=== PATIENT | male | born 1975 | race Caucasian/White ===

== ENCOUNTER 2018-10-15 10:15 | Emergency (ER) | payer OTHER ==
[~2018-10-15] VITALS: Ht 177.8 cm; Wt 100.0 kg
[~2018-10-15 10:15] MED LIST: BACLOFEN10 MG PO; BUPRENORPHIN-N1 EACH SL; CARAFATE1 G PO; CLARITIN 10 MG10 MG PO; CLONAZEPAM2 MG/TAB PO; IBUPROFEN600 MG PO; LATUDA80 MG PO; LYRICA50 MG PO; NEURONTIN600 MG PO; SEROQUEL200 MG PO; SEROQUEL400 MG PO; TOPROL XL25 MG
[2018-10-15 10:27] VITALS: Ht 177.8 cm; Wt 100.0 kg
[2018-10-15 11:01] LABS: BASOPHILS 0.2 % (0-2); EOSINOPHILS 4.3 % (0-7); HEMATOCRIT 32.8 % (42.0-54.0); HEMOGLOBIN 10.4 g/dL (13.5-17.5); IMMATURE GRANULOCYTES 0.2 % (0-5); LYMPHOCYTES 22.1 % (15-50); MCH 27.1 pg (26.0-34.0); MCHC 31.7 g/dL (31.0-37.0); MCV 85.4 fL (80.0-100.0); MEAN PLATELET VOLUME 9.7 fL (7.4-10.4); MONOCYTES 7.8 % (2-11); NEUTROPHILS 65.4 % (40-80); PLATELET COUNT 276 10x3/uL (130-400); RBC 3.84 10x6/uL (4.20-6.10)
[2018-10-15 11:15] LABS: SALICYLATES 3.2 mg/dL (2.8-20.0)
[2018-10-15 11:18] LABS: LITHIUM 0.05 mmol/L (0.60-1.20)
[2018-10-15 11:19] LABS: ALBUMIN 3.2 g/dL (3.4-5.0); ALKALINE PHOSPHATASE 80 U/L (46-116); ALT (SGPT) 36 U/L (10-68); BILIRUBIN - TOTAL 0.18 mg/dL (0.2-1.3); CALC OSMOLALITY 277 mosm/kg (275-300); CALCIUM 8.4 mg/dL (8.5-10.1); CARBON DIOXIDE 28.1 mmol/L (21.0-32.0); CHLORIDE - SERUM 106 mmol/L (98-107); CREATININE - SERUM 0.9 mg/dL (0.6-1.3); GLUCOSE 102 mg/dL (74-106); MAGNESIUM - SERUM 1.8 mg/dL (1.8-2.4); POTASSIUM - SERUM 3.8 mmol/L (3.5-5.1); PROTEIN - SERUM 7.3 g/dL (6.4-8.2); SODIUM 140 mmol/L (136-145); UREA NITROGEN 10 mg/dL (7-18); eGFR NON AFRICAN AMERICAN > 90 mL/min (90-120)
[2018-10-15 11:58] LABS: APPEARANCE CLEAR (CLEAR); BILIRUBIN NEGATIVE (NEGATIVE); COLOR STRAW (YELLOW); GLUCOSE NEGATIVE (NEGATIVE); KETONE NEGATIVE (NEGATIVE); NITRITE NEGATIVE (NEGATIVE); PROTEIN NEGATIVE (NEGATIVE); UROBILINOGEN NORMAL (NORMAL)
[2018-10-15 12:21] LABS: UDS - AMPHET NEGATIVE QUAL (NEGATIVE); UDS - BARB NEGATIVE QUAL (NEGATIVE); UDS - BENZO NEGATIVE QUAL (NEGATIVE); UDS - COCAINE NEGATIVE QUAL (NEGATIVE); UDS - OPIATE NEGATIVE QUAL (NEGATIVE); UDS - PCP NEGATIVE QUAL (NEGATIVE); UDS - THC POSITIVE QUAL (NEGATIVE)
[2018-10-15 20:26] VITALS: BP 115/72
== END 2018-10-15 20:31 ==
LOC: D.ER 10:15
PROVIDERS: Emergency Medicine
DX: F31.9 Bipolar disorder, unspecified (principal)

== ENCOUNTER 2018-11-02 16:59 | Emergency (ER) | payer OTHER ==
[~2018-11-02] VITALS: Ht 177.8 cm; Wt 95.5 kg
[2018-11-02 17:15] VITALS: Ht 177.8 cm; Wt 95.5 kg
[2018-11-02 17:57] LABS: BASOPHILS 0 % (0-2); EOSINOPHILS 3.4 % (0-7); HEMATOCRIT 30.9 % (42.0-54.0); HEMOGLOBIN 9.8 g/dL (13.5-17.5); IMMATURE GRANULOCYTES 0.8 % (0-5); LYMPHOCYTES 8.8 % (15-50); MCH 26.3 pg (26.0-34.0); MCHC 31.7 g/dL (31.0-37.0); MCV 83.1 fL (80.0-100.0); MEAN PLATELET VOLUME 9.8 fL (7.4-10.4); MONOCYTES 0 % (2-11); RBC 3.72 10x6/uL (4.20-6.10); RDW 17.7 % (11.5-14.5); WBC 2.6 10x3/uL (4.8-10.8)
[2018-11-02 17:59] LABS: PLATELET COUNT 199 10x3/uL (130-400)
[2018-11-02 18:10] LABS: UDS - AMPHET POSITIVE QUAL (NEGATIVE); UDS - BARB NEGATIVE QUAL (NEGATIVE); UDS - BENZO NEGATIVE QUAL (NEGATIVE); UDS - COCAINE NEGATIVE QUAL (NEGATIVE); UDS - OPIATE NEGATIVE QUAL (NEGATIVE); UDS - PCP NEGATIVE QUAL (NEGATIVE); UDS - THC POSITIVE QUAL (NEGATIVE)
[2018-11-02 18:12] LABS: APPEARANCE CLEAR (CLEAR); BILIRUBIN NEGATIVE (NEGATIVE); COLOR STRAW (YELLOW); GLUCOSE NEGATIVE (NEGATIVE); KETONE NEGATIVE (NEGATIVE); NITRITE NEGATIVE (NEGATIVE); PROTEIN NEGATIVE (NEGATIVE); SPECIFIC GRAVITY 1.005 (1.005-1.020); UROBILINOGEN NORMAL (NORMAL)
[2018-11-02 18:14] LABS: BACTERIA FEW /hpf (NONE SEEN); RED CELLS - URINE RARE /hpf (0-5); WHITE CELLS - URINE OCC /hpf (0-5)
[2018-11-02 18:16] LABS: ALBUMIN 3.3 g/dL (3.4-5.0); ANION GAP 12.3 mmol/L (8-16); BILIRUBIN - TOTAL 0.32 mg/dL (0.2-1.3); CALCIUM 8.4 mg/dL (8.5-10.1); CARBON DIOXIDE 25.6 mmol/L (21.0-32.0); CREATININE - SERUM 1.2 mg/dL (0.6-1.3); MAGNESIUM - SERUM 1.4 mg/dL (1.8-2.4); POTASSIUM - SERUM 3.9 mmol/L (3.5-5.1)
[2018-11-02] MEDS ORDERED: LEVAQUIN750 MG PO (18:54)
[2018-11-02] MEDS ORDERED: IBUPROFEN800 MG PO (18:57)
[2018-11-02 23:29] VITALS: BP 135/89
== END 2018-11-02 23:30 | disposition home or self-care (01) ==
LOC: D.ER 16:59
PROVIDERS: Emergency Medicine
DX: F10.10 Alcohol abuse, uncomplicated (principal); D64.9 Anemia, unspecified; F15.10 Other stimulant abuse, uncomplicated; R50.9 Fever, unspecified; E83.42 Hypomagnesemia

== ENCOUNTER 2018-11-26 15:19 | Inpatient (IN) | payer OTHER | END 2018-12-01 14:50 | disposition home or self-care (01) | DRG 603 | LOC: D.ER 15:19 → D.M2 20:51 | PROVIDERS: ADMIT Family Medicine | DX: L03.113 Cellulitis of right upper limb (principal); F31.12 Bipolar disorder, current episode manic without psychotic features, moderate; F15.10 Other stimulant abuse, uncomplicated; F12.10 Cannabis abuse, uncomplicated; F11.10 Opioid abuse, uncomplicated ==

== ENCOUNTER 2018-12-04 12:03 | Emergency (ER) | payer OTHER ==
[~2018-12-04 12:03] MED LIST changes: +BUPRENORPHINE/NALOX; +IBUPROFEN800 MG PO; +LEVAQUIN750 MG PO; +LITHIUM CARBON300 MG PO; +NEURONTIN800 MG PO
[2018-12-04 12:08] VITALS: BP 143/77; BMI 28.7
[2018-12-04 12:38] LABS: BASOPHILS 0.2 % (0-2); EOSINOPHILS 7.3 % (0-7); HEMATOCRIT 34.1 % (42.0-54.0); IMMATURE GRANULOCYTES 0.7 % (0-5); LYMPHOCYTES 26.6 % (15-50); MCH 24.8 pg (26.0-34.0); MCHC 32.3 g/dL (31.0-37.0); MEAN PLATELET VOLUME 9.4 fL (7.4-10.4); MONOCYTES 8.8 % (2-11); NEUTROPHILS 56.4 % (40-80); PLATELET COUNT 321 10x3/uL (130-400); RBC 4.43 10x6/uL (4.20-6.10); RDW 17.8 % (11.5-14.5); WBC 8.5 10x3/uL (4.8-10.8)
[2018-12-04 12:50] LABS: ALBUMIN 3.2 g/dL (3.4-5.0); ALKALINE PHOSPHATASE 106 U/L (46-116); ALT (SGPT) 40 U/L (10-68); BILIRUBIN - TOTAL 0.18 mg/dL (0.2-1.3); CALC OSMOLALITY 278 mosm/kg (275-300); CALCIUM 8.6 mg/dL (8.5-10.1); CARBON DIOXIDE 29.7 mmol/L (21.0-32.0); CHLORIDE - SERUM 103 mmol/L (98-107); CREATININE - SERUM 0.8 mg/dL (0.6-1.3); GLUCOSE 81 mg/dL (74-106); POTASSIUM - SERUM 3.2 mmol/L (3.5-5.1); PROTEIN - SERUM 7.5 g/dL (6.4-8.2); SODIUM 141 mmol/L (136-145); UREA NITROGEN 10 mg/dL (7-18); eGFR NON AFRICAN AMERICAN > 90 mL/min (90-120)
[2018-12-04 12:59] LABS: APPEARANCE CLEAR (CLEAR); BILIRUBIN NEGATIVE (NEGATIVE); COLOR STRAW (YELLOW); GLUCOSE NEGATIVE (NEGATIVE); KETONE NEGATIVE (NEGATIVE); NITRITE NEGATIVE (NEGATIVE); PROTEIN NEGATIVE (NEGATIVE); SPECIFIC GRAVITY 1.005 (1.005-1.020); UROBILINOGEN NORMAL (NORMAL)
[2018-12-04 13:08] LABS: UDS - AMPHET NEGATIVE QUAL (NEGATIVE); UDS - BARB NEGATIVE QUAL (NEGATIVE); UDS - BENZO NEGATIVE QUAL (NEGATIVE); UDS - COCAINE NEGATIVE QUAL (NEGATIVE); UDS - OPIATE NEGATIVE QUAL (NEGATIVE); UDS - PCP NEGATIVE QUAL (NEGATIVE); UDS - THC NEGATIVE QUAL (NEGATIVE)
--- NOTE | 2018-12-04 13:40 | NUR ---
DR. THOMAS NOTIFIED AND REVIEWED PATIENTS BEHAVIOR AND ASSESSMENT RESULTS. PT IS LOW RISK PER DR. TSANG. DR. TSANG STATED TO GIVE RESOURCES TO PT AT TIME OF DISCHARGE. NO FURTHER ORDERS AT THIS TIME. PT STATED HE WANTED HIS MEDICATIONS."
== END 2018-12-04 18:10 ==
LOC: D.ER 12:03
PROVIDERS: Emergency Medicine
DX: R45.851 Suicidal ideations (principal); F32.9 Major depressive disorder, single episode, unspecified

== ENCOUNTER 2018-12-23 07:31 | Emergency (ER) | payer OTHER ==
[~2018-12-23] VITALS: Ht 177.8 cm; Wt 86.4 kg
[2018-12-23 07:39] VITALS: Ht 177.8 cm; Wt 86.4 kg
[2018-12-23] MEDS ORDERED: EFFEXOR50 MG PO (07:40)
[2018-12-23] MEDS ORDERED: SUBOXONE 2 MG-01 TAB SL (07:41)
--- NOTE | 2018-12-23 07:49 | NUR ---
NURSE PRESENT WITH PT UPON ARRIVAL FOR SUICIDE ASSESSMENT. DR. TSANG NOTIFIED AND 1:1 SITTER OBSERVATION ORDERED. SITTER AT BEDSIDE. NOTIFIED CHARGE NURSE AND ATTENDING IN REGARDS TO ASSESSMENT FINDINGS. RESOURCES GIVEN TO PT AND SAFETY PLAN INITIATED.
[2018-12-23 08:47] LABS: UDS - AMPHET POSITIVE QUAL (NEGATIVE); UDS - BARB NEGATIVE QUAL (NEGATIVE); UDS - BENZO NEGATIVE QUAL (NEGATIVE); UDS - COCAINE NEGATIVE QUAL (NEGATIVE); UDS - OPIATE NEGATIVE QUAL (NEGATIVE); UDS - PCP NEGATIVE QUAL (NEGATIVE); UDS - THC POSITIVE QUAL (NEGATIVE)
[2018-12-23 08:55] LABS: APPEARANCE HAZY (CLEAR); BILIRUBIN NEGATIVE (NEGATIVE); COLOR YELLOW (YELLOW); GLUCOSE NEGATIVE (NEGATIVE); KETONE SMALL mg/dL (NEGATIVE); NITRITE NEGATIVE (NEGATIVE); PROTEIN NEGATIVE (NEGATIVE); SPECIFIC GRAVITY 1.015 (1.005-1.020); UROBILINOGEN NORMAL (NORMAL)
[2018-12-23 08:55] LABS: BASOPHILS 0.1 % (0-2); EOSINOPHILS 0.9 % (0-7); HEMATOCRIT 33.3 % (42.0-54.0); HEMOGLOBIN 10.8 g/dL (13.5-17.5); IMMATURE GRANULOCYTES 0.1 % (0-5); LYMPHOCYTES 11.7 % (15-50); MCHC 32.4 g/dL (31.0-37.0); MCV 77.1 fL (80.0-100.0); MEAN PLATELET VOLUME 9.3 fL (7.4-10.4); NEUTROPHILS 81.2 % (40-80); RBC 4.32 10x6/uL (4.20-6.10); RDW 19.3 % (11.5-14.5); WBC 6.8 10x3/uL (4.8-10.8)
[2018-12-23 09:04] LABS: PLATELET COUNT 239 10x3/uL (130-400)
[2018-12-23 09:14] LABS: ALBUMIN 3.5 g/dL (3.4-5.0); ALKALINE PHOSPHATASE 108 U/L (46-116); ALT (SGPT) 55 U/L (10-68); BILIRUBIN - TOTAL 0.94 mg/dL (0.2-1.3); CALC OSMOLALITY 277 mosm/kg (275-300); CALCIUM 8.7 mg/dL (8.5-10.1); CARBON DIOXIDE 27.2 mmol/L (21.0-32.0); CHLORIDE - SERUM 104 mmol/L (98-107); CREATININE - SERUM 0.6 mg/dL (0.6-1.3); GLUCOSE 109 mg/dL (74-106); POTASSIUM - SERUM 3.3 mmol/L (3.5-5.1); PROTEIN - SERUM 7.5 g/dL (6.4-8.2); SODIUM 140 mmol/L (136-145); UREA NITROGEN 6 mg/dL (7-18); eGFR NON AFRICAN AMERICAN > 90 mL/min (90-120)
[2018-12-23 09:34] LABS: CREATINE KINASE 465 UL (21-232); MAGNESIUM - SERUM 2.1 mg/dL (1.8-2.4); THYROID STIMULATING HORMONE 0.23 uIU/mL (0.36-3.74)
[2018-12-23 09:36] LABS: CKMB 3.5 U/L (0.0-3.6)
[2018-12-23 15:46] VITALS: BP 128/86
== END 2018-12-23 17:48 ==
LOC: D.ER 07:31
PROVIDERS: Family Medicine
DX: E87.6 Hypokalemia (principal); E86.0 Dehydration; F19.10 Other psychoactive substance abuse, uncomplicated; R45.851 Suicidal ideations

== ENCOUNTER 2019-01-17 18:07 | Emergency (ER) | payer OTHER ==
[~2019-01-17] VITALS: Ht 177.8 cm; Wt 84.1 kg
[~2019-01-17 18:07] MED LIST changes: +EFFEXOR50 MG PO; +SUBOXONE 2 MG-01 TAB SL
[2019-01-17 18:20] VITALS: Ht 177.8 cm; Wt 84.1 kg
[2019-01-17 18:38] LABS: BASOPHILS 0.1 % (0-2); HEMATOCRIT 30.7 % (42.0-54.0); HEMOGLOBIN 9.8 g/dL (13.5-17.5); IMMATURE GRANULOCYTES 0.1 % (0-5); LYMPHOCYTES 16.6 % (15-50); MCH 25.7 pg (26.0-34.0); MCHC 31.9 g/dL (31.0-37.0); MCV 80.4 fL (80.0-100.0); MONOCYTES 6.9 % (2-11); NEUTROPHILS 73.3 % (40-80); PLATELET COUNT 304 10x3/uL (130-400); RBC 3.82 10x6/uL (4.20-6.10); RDW 18.3 % (11.5-14.5); WBC 8.5 10x3/uL (4.8-10.8)
[2019-01-17 18:46] LABS: SALICYLATES 0.3 mg/dL (2.8-20.0)
[2019-01-17 18:48] LABS: LITHIUM < 0.60 mmol/L (0.60-1.20)
[2019-01-17 18:51] LABS: ALBUMIN 2.8 g/dL (3.4-5.0); ALKALINE PHOSPHATASE 87 U/L (46-116); ALT (SGPT) 27 U/L (10-68); CALC OSMOLALITY 277 mosm/kg (275-300); CALCIUM 8.2 mg/dL (8.5-10.1); CARBON DIOXIDE 29.6 mmol/L (21.0-32.0); CHLORIDE - SERUM 105 mmol/L (98-107); CREATININE - SERUM 1.1 mg/dL (0.6-1.3); GLUCOSE 116 mg/dL (74-106); MAGNESIUM - SERUM 1.8 mg/dL (1.8-2.4); PROTEIN - SERUM 6.7 g/dL (6.4-8.2); SODIUM 140 mmol/L (136-145); UREA NITROGEN 7 mg/dL (7-18); eGFR NON AFRICAN AMERICAN 78 mL/min (90-120)
[2019-01-17 18:54] LABS: POTASSIUM - SERUM 2.6 mmol/L (3.5-5.1)
[2019-01-17 19:44] LABS: APPEARANCE CLEAR (CLEAR); BILIRUBIN NEGATIVE (NEGATIVE); COLOR YELLOW (YELLOW); GLUCOSE NEGATIVE (NEGATIVE); KETONE NEGATIVE (NEGATIVE); NITRITE NEGATIVE (NEGATIVE); PROTEIN TRACE mg/dL (NEGATIVE); SPECIFIC GRAVITY 1.005 (1.005-1.020)
[2019-01-17 19:54] LABS: UDS - AMPHET POSITIVE QUAL (NEGATIVE); UDS - BARB NEGATIVE QUAL (NEGATIVE); UDS - BENZO POSITIVE QUAL (NEGATIVE); UDS - COCAINE NEGATIVE QUAL (NEGATIVE); UDS - OPIATE NEGATIVE QUAL (NEGATIVE); UDS - PCP NEGATIVE QUAL (NEGATIVE); UDS - THC POSITIVE QUAL (NEGATIVE)
--- NOTE | 2019-01-17 20:43 | NUR ---
PATIENT REFUSED SUICIDE ASSESSMENT. STATES "I DON'T FEEL LIKE ANSWERING YOUR QUESTIONS". ENCOURAGE TO ANSWER QUESTIONS BUT CONTINUED TO REFUSE. INFORMED CHARGE NURSE OF PATIENT REFUSAL OF SUICIDE ASSESSMENT. PATIENT IN SAFE ROOM WITH VIDEO OBSERVATION.
--- NOTE | 2019-01-18 08:27 | NUR ---
DR. TSANG NOTIFIED. SITTER ORDERED. SITTER AT BEDSIDE. NOTIFIED CHARGE NURSE AND ATTENDING IN REGARDS TO ASSESSMENT FINDINGS. RESOURCES GIVEN TO PT AND SAFETY PLAN INITIATED.
[2019-01-18 16:19] VITALS: BP 151/91
== END 2019-01-18 16:19 | disposition home or self-care (01) ==
LOC: D.ER 18:07
PROVIDERS: Family Medicine
DX: F32.9 Major depressive disorder, single episode, unspecified (principal); F19.11 Other psychoactive substance abuse, in remission; E87.6 Hypokalemia; D64.9 Anemia, unspecified; Z91.19 Patient's noncompliance with other medical treatment and regimen

== ENCOUNTER 2019-02-03 10:03 | Emergency (ER) | payer OTHER ==
[~2019-02-03] VITALS: Ht 177.8 cm; Wt 84.1 kg
[2019-02-03 10:23] VITALS: BP 130/74; Ht 177.8 cm; Wt 84.1 kg
[2019-02-03 10:51] LABS: APPEARANCE CLEAR (CLEAR); BILIRUBIN NEGATIVE (NEGATIVE); COLOR YELLOW (YELLOW); GLUCOSE NEGATIVE (NEGATIVE); KETONE SMALL mg/dL (NEGATIVE); NITRITE NEGATIVE (NEGATIVE); PROTEIN NEGATIVE (NEGATIVE); SPECIFIC GRAVITY 1.015 (1.005-1.020); UROBILINOGEN NORMAL (NORMAL)
[2019-02-03 10:52] LABS: HEMATOCRIT 33.2 % (42.0-54.0); HEMOGLOBIN 10.6 g/dL (13.5-17.5); LYMPHOCYTES 22.5 % (15-50); MCH 26.2 pg (26.0-34.0); MCHC 31.9 g/dL (31.0-37.0); MEAN PLATELET VOLUME 8.9 fL (7.4-10.4); NEUTROPHILS 67.8 % (40-80); PLATELET COUNT 329 10x3/uL (130-400); RBC 4.05 10x6/uL (4.20-6.10); RDW 17.3 % (11.5-14.5); WBC 5.5 10x3/uL (4.8-10.8)
[2019-02-03 11:21] LABS: ALBUMIN 2.8 g/dL (3.4-5.0); ALKALINE PHOSPHATASE 86 U/L (46-116); ALT (SGPT) 22 U/L (10-68); BILIRUBIN - TOTAL 0.33 mg/dL (0.2-1.3); CALC OSMOLALITY 266 mosm/kg (275-300); CALCIUM 8.1 mg/dL (8.5-10.1); CARBON DIOXIDE 26.9 mmol/L (21.0-32.0); CHLORIDE - SERUM 102 mmol/L (98-107); CREATININE - SERUM 0.7 mg/dL (0.6-1.3); GLUCOSE 81 mg/dL (74-106); MAGNESIUM - SERUM 1.8 mg/dL (1.8-2.4); POTASSIUM - SERUM 3.6 mmol/L (3.5-5.1); PROTEIN - SERUM 7.6 g/dL (6.4-8.2); SODIUM 135 mmol/L (136-145); UDS - AMPHET POSITIVE QUAL (NEGATIVE); UDS - BARB NEGATIVE QUAL (NEGATIVE); UDS - BENZO POSITIVE QUAL (NEGATIVE); UDS - COCAINE NEGATIVE QUAL (NEGATIVE); UDS - OPIATE NEGATIVE QUAL (NEGATIVE); UDS - PCP NEGATIVE QUAL (NEGATIVE); UDS - THC POSITIVE QUAL (NEGATIVE); UREA NITROGEN 6 mg/dL (7-18); eGFR NON AFRICAN AMERICAN > 90 mL/min (90-120)
--- NOTE | 2019-02-03 11:39 | NUR ---
PT IS VERY UNCOOPERATIVE WITH ASSESSMENT AND JUST REPEATS THAT HE WANTS TO OVERDOSE BY PILLS. WHEN ASKED IF HE HAD ACCESS TO PILLS HE SAID NO BUT CALLED THIS NURSE STUPID AND STATED HE COULD GET THEM. PT KEPT FALLING ASLEEP DURING ASSESSMENT AND HE WAS WOKEN UP, HE DEMANDED FOOD. PT REFUSED TO FINISH ASSESSMENT. DR. TSANG NOTIFIED AND SITTER ORDERED WITH SUICIDE WATCH. PT ASSESSED HIGH RISK. RESOURCES GIVEN AND SAFETY PLAN ATTEPTED BUT PT REFUSED. SITTER AT BEDSIDE. PT PLACED IN PAPER SCRUBS AND BELONGINGS AT NURSES STATION.
[2019-02-03] MEDS ORDERED: MINOCYCLINE HCL75 M1 PO (11:58)
== END 2019-02-03 12:43 | disposition home or self-care (01) ==
LOC: D.ER 10:03
PROVIDERS: Emergency Medicine
DX: S80.862A Insect bite (nonvenomous), left lower leg, initial encounter (principal); S80.861A Insect bite (nonvenomous), right lower leg, initial encounter; W57.XXXA Bitten or stung by nonvenomous insect and other nonvenomous arthropods, initial encounter; Y93.89 Activity, other specified; Y92.89 Other specified places as the place of occurrence of the external cause; R45.851 Suicidal ideations; K62.89 Other specified diseases of anus and rectum

== ENCOUNTER 2019-03-29 17:32 | Emergency (ER) | payer OTHER ==
[2019-02-03 10:23] VITALS: BMI 26.6
[~2019-03-29 17:32] MED LIST changes: +MINOCYCLINE HCL75 M1 PO
== END 2019-03-29 17:53 | disposition left against medical advice (07) ==
LOC: D.ER 17:32
DX: Z79.899 Other long term (current) drug therapy (principal)

== ENCOUNTER 2019-03-31 10:48 | Emergency (ER) | payer OTHER ==
[~2019-03-31] VITALS: Ht 177.8 cm; Wt 86.4 kg
[2019-03-31 10:49] VITALS: Ht 177.8 cm; Wt 86.4 kg
[2019-03-31] MEDS ORDERED: NEURONTIN800 MG PO (11:01)
[2019-03-31] MEDS ORDERED: HYDROXYZINE HCL50 MG PO (11:01)
[2019-03-31] MEDS ORDERED: SEROQUEL100 MG PO (11:02)
[2019-03-31 11:24] LABS: UDS - AMPHET NEGATIVE QUAL (NEGATIVE); UDS - BARB NEGATIVE QUAL (NEGATIVE); UDS - BENZO NEGATIVE QUAL (NEGATIVE); UDS - COCAINE NEGATIVE QUAL (NEGATIVE); UDS - OPIATE NEGATIVE QUAL (NEGATIVE); UDS - PCP NEGATIVE QUAL (NEGATIVE); UDS - THC NEGATIVE QUAL (NEGATIVE)
[2019-03-31 11:39] LABS: APPEARANCE CLEAR (CLEAR); BILIRUBIN NEGATIVE (NEGATIVE); COLOR STRAW (YELLOW); GLUCOSE NEGATIVE (NEGATIVE); KETONE NEGATIVE (NEGATIVE); NITRITE NEGATIVE (NEGATIVE); PROTEIN NEGATIVE (NEGATIVE); SPECIFIC GRAVITY 1.005 (1.005-1.020); UROBILINOGEN NORMAL (NORMAL)
[2019-03-31 11:47] LABS: BASOPHILS 0.1 % (0-2); EOSINOPHILS 0.1 % (0-7); HEMATOCRIT 40.2 % (42.0-54.0); HEMOGLOBIN 13.4 g/dL (13.5-17.5); IMMATURE GRANULOCYTES 0.3 % (0-5); LYMPHOCYTES 18.5 % (15-50); MCH 29.1 pg (26.0-34.0); MCHC 33.3 g/dL (31.0-37.0); MCV 87.2 fL (80.0-100.0); MEAN PLATELET VOLUME 9.1 fL (7.4-10.4); MONOCYTES 11.1 % (2-11); NEUTROPHILS 69.9 % (40-80); RBC 4.61 10x6/uL (4.20-6.10); RDW 17.3 % (11.5-14.5); WBC 7.2 10x3/uL (4.8-10.8)
[2019-03-31 11:54] LABS: SALICYLATES 3.3 mg/dL (2.8-20.0)
[2019-03-31 11:55] LABS: LITHIUM < 0.20 mmol/L (0.60-1.20)
[2019-03-31 11:59] LABS: PLATELET COUNT 244 10x3/uL (130-400)
[2019-03-31 12:00] LABS: ALBUMIN 3.7 g/dL (3.4-5.0); ALKALINE PHOSPHATASE 127 U/L (46-116); ALT (SGPT) 51 U/L (10-68); BILIRUBIN - TOTAL 0.31 mg/dL (0.2-1.3); CALC OSMOLALITY 275 mosm/kg (275-300); CALCIUM 8.6 mg/dL (8.5-10.1); CARBON DIOXIDE 29.4 mmol/L (21.0-32.0); CHLORIDE - SERUM 102 mmol/L (98-107); CREATININE - SERUM 0.8 mg/dL (0.6-1.3); GLUCOSE 81 mg/dL (74-106); MAGNESIUM - SERUM 1.7 mg/dL (1.8-2.4); POTASSIUM - SERUM 3.6 mmol/L (3.5-5.1); PROTEIN - SERUM 8.1 g/dL (6.4-8.2); SODIUM 140 mmol/L (136-145); UREA NITROGEN 7 mg/dL (7-18); eGFR NON AFRICAN AMERICAN > 90 mL/min (90-120)
--- NOTE | 2019-03-31 12:01 | NUR ---
DR. TSANG NOTIFIED AND SITTER ORDERED. SITTER AT BEDSIDE. NOTIFIED CHARGE NURSE AND ATTENDING IN REGARDS TO ASSESSMENT FINDINGS. RESOURCES GIVEN AND PT REFUSED SAFETY PLAN.
[2019-03-31 22:00] VITALS: BP 120/70
== END 2019-03-31 22:00 ==
LOC: D.ER 10:48
PROVIDERS: Emergency Medicine
DX: R45.851 Suicidal ideations (principal); F10.10 Alcohol abuse, uncomplicated; F17.210 Nicotine dependence, cigarettes, uncomplicated

== ENCOUNTER 2019-04-23 16:43 | Emergency (ER) | payer OTHER ==
[~2019-04-23] VITALS: Ht 177.8 cm; Wt 84.1 kg
[~2019-04-23 16:43] MED LIST changes: +HYDROXYZINE HCL50 MG PO; +SEROQUEL100 MG PO
[2019-04-23 16:46] VITALS: Ht 177.8 cm; Wt 84.1 kg
[2019-04-23 17:11] LABS: UDS - AMPHET POSITIVE QUAL (NEGATIVE); UDS - BARB NEGATIVE QUAL (NEGATIVE); UDS - BENZO POSITIVE QUAL (NEGATIVE); UDS - COCAINE NEGATIVE QUAL (NEGATIVE); UDS - OPIATE NEGATIVE QUAL (NEGATIVE); UDS - PCP NEGATIVE QUAL (NEGATIVE); UDS - THC POSITIVE QUAL (NEGATIVE)
[2019-04-23 17:19] LABS: BASOPHILS 0.4 % (0-2); EOSINOPHILS 2.4 % (0-7); HEMATOCRIT 42.6 % (42.0-54.0); HEMOGLOBIN 14.1 g/dL (13.5-17.5); IMMATURE GRANULOCYTES 0.2 % (0-5); LYMPHOCYTES 28.7 % (15-50); MCH 29.6 pg (26.0-34.0); MCHC 33.1 g/dL (31.0-37.0); MCV 89.3 fL (80.0-100.0); MEAN PLATELET VOLUME 9.1 fL (7.4-10.4); MONOCYTES 11.8 % (2-11); NEUTROPHILS 56.5 % (40-80); PLATELET COUNT 273 10x3/uL (130-400); RBC 4.77 10x6/uL (4.20-6.10); RDW 14.7 % (11.5-14.5); WBC 4.6 10x3/uL (4.8-10.8)
[2019-04-23 17:29] LABS: APPEARANCE CLEAR (CLEAR); BILIRUBIN NEGATIVE (NEGATIVE); COLOR YELLOW (YELLOW); GLUCOSE NEGATIVE (NEGATIVE); KETONE NEGATIVE (NEGATIVE); NITRITE NEGATIVE (NEGATIVE); PROTEIN NEGATIVE (NEGATIVE); UROBILINOGEN NORMAL (NORMAL)
[2019-04-23 17:30] LABS: CALC OSMOLALITY 277 mosm/kg (275-300); CALCIUM 8.6 mg/dL (8.5-10.1); CARBON DIOXIDE 30.1 mmol/L (21.0-32.0); CHLORIDE - SERUM 104 mmol/L (98-107); CREATININE - SERUM 0.8 mg/dL (0.6-1.3); GLUCOSE 87 mg/dL (74-106); POTASSIUM - SERUM 3.4 mmol/L (3.5-5.1); SODIUM 141 mmol/L (136-145); UREA NITROGEN 7 mg/dL (7-18); eGFR NON AFRICAN AMERICAN > 90 mL/min (90-120)
[2019-04-23 17:31] LABS: RED CELLS - URINE OCC /hpf (0-5); WHITE CELLS - URINE 0-5 /hpf (NEGATIVE)
[2019-04-23 17:32] LABS: BACTERIA FEW /hpf (NEGATIVE)
[2019-04-23 17:36] LABS: ALKALINE PHOSPHATASE 95 U/L (46-116); ALT (SGPT) 38 U/L (10-68); BILIRUBIN - TOTAL 0.27 mg/dL (0.2-1.3); MAGNESIUM - SERUM 1.7 mg/dL (1.8-2.4); PROTEIN - SERUM 7.3 g/dL (6.4-8.2)
--- NOTE | 2019-04-23 17:52 | NUR ---
DR. TSAGN NOTIFIED AND SITTER ORDERED. SITTER IN LINE OF SIGHT. NOTIFIED CHARGE NURSE AND ATTENDING IN REGARDS TO ASSESSMENT RESULTS. RESOURCES GIVEN TO PT AND SAFETY PLAN INITIATED.
[2019-04-24 04:09] VITALS: BP 132/84
== END 2019-04-24 04:15 ==
LOC: D.ER 16:43
PROVIDERS: Family Medicine
DX: R45.851 Suicidal ideations (principal)

== ENCOUNTER 2019-05-25 08:57 | Emergency (ER) | payer OTHER ==
[~2019-05-25] VITALS: Ht 177.8 cm; Wt 81.8 kg
[2019-05-25 09:01] VITALS: Ht 177.8 cm; Wt 81.8 kg
[2019-05-25 09:44] LABS: BASOPHILS 0.1 % (0-2); EOSINOPHILS 1.5 % (0-7); HEMATOCRIT 44.4 % (42.0-54.0); HEMOGLOBIN 14.7 g/dL (13.5-17.5); IMMATURE GRANULOCYTES 0.3 % (0-5); LYMPHOCYTES 20.8 % (15-50); MCH 30.4 pg (26.0-34.0); MCHC 33.1 g/dL (31.0-37.0); MCV 91.7 fL (80.0-100.0); MEAN PLATELET VOLUME 9.3 fL (7.4-10.4); MONOCYTES 5.4 % (2-11); NEUTROPHILS 71.9 % (40-80); PLATELET COUNT 265 10x3/uL (130-400); RBC 4.84 10x6/uL (4.20-6.10); WBC 7.5 10x3/uL (4.8-10.8)
[2019-05-25 09:47] LABS: CALC OSMOLALITY 280 mosm/kg (275-300); CALCIUM 8.8 mg/dL (8.5-10.1); CARBON DIOXIDE 25.7 mmol/L (21.0-32.0); CHLORIDE - SERUM 107 mmol/L (98-107); CREATININE - SERUM 0.9 mg/dL (0.6-1.3); GLUCOSE 103 mg/dL (74-106); POTASSIUM - SERUM 3.5 mmol/L (3.5-5.1); SODIUM 142 mmol/L (136-145); UREA NITROGEN 6 mg/dL (7-18); eGFR NON AFRICAN AMERICAN > 90 mL/min (90-120)
[2019-05-25 09:53] LABS: ALBUMIN 3.7 g/dL (3.4-5.0); ALKALINE PHOSPHATASE 153 U/L (46-116); ALT (SGPT) 123 U/L (10-68); BILIRUBIN - TOTAL 0.16 mg/dL (0.2-1.3); PROTEIN - SERUM 8.2 g/dL (6.4-8.2)
[2019-05-25 10:16] LABS: UDS - AMPHET POSITIVE QUAL (NEGATIVE); UDS - BARB NEGATIVE QUAL (NEGATIVE); UDS - BENZO NEGATIVE QUAL (NEGATIVE); UDS - COCAINE NEGATIVE QUAL (NEGATIVE); UDS - OPIATE NEGATIVE QUAL (NEGATIVE); UDS - PCP NEGATIVE QUAL (NEGATIVE); UDS - THC POSITIVE QUAL (NEGATIVE)
--- NOTE | 2019-05-25 10:17 | NUR ---
PT HAD A SUICIDE ATTEMPT IN 2003 WHERE HE WAS HOSPITALIZED. PT HAS BEEN OFF OF HIS DEPRESSION MEDICATION FOR A WEEK. PT CONTRACTED FOR SAFETY. PT IS AGREEABLE TO PLACEMENT. DR. TSANG AND ATTENDING NOTIFIED AND A SITTER WAS ORDERED. PT IS A HIGH RISK PER ASSESSMENT.
[2019-05-25 10:28] LABS: APPEARANCE HAZY (CLEAR); BILIRUBIN NEGATIVE (NEGATIVE); COLOR YELLOW (YELLOW); GLUCOSE NEGATIVE (NEGATIVE); KETONE NEGATIVE (NEGATIVE); NITRITE NEGATIVE (NEGATIVE); PROTEIN NEGATIVE (NEGATIVE); SPECIFIC GRAVITY 1.025 (1.005-1.020); UROBILINOGEN NORMAL (NORMAL)
[2019-05-25 10:29] LABS: BACTERIA FEW /hpf (NEGATIVE); EPITHELIAL CELLS 0-5 /hpf (0-5); MUCUS <1+ /lpf (NONE SEEN); WHITE CELLS - URINE 0-5 /hpf (NEGATIVE)
[2019-05-25 12:07] VITALS: BP 127/89
== END 2019-05-25 15:37 ==
LOC: D.ER 08:57
PROVIDERS: Family Medicine
DX: R45.851 Suicidal ideations (principal); F10.129 Alcohol abuse with intoxication, unspecified; Y90.4 Blood alcohol level of 80-99 mg/100 ml; F19.10 Other psychoactive substance abuse, uncomplicated; J45.909 Unspecified asthma, uncomplicated

== ENCOUNTER 2019-07-12 14:11 | Emergency (ER) | payer OTHER ==
[~2019-07-12] VITALS: Ht 177.8 cm; Wt 80.9 kg
[2019-07-12 14:44] VITALS: Ht 177.8 cm; Wt 80.9 kg
[2019-07-12 14:59] LABS: BASOPHILS 0.1 % (0-2); EOSINOPHILS 0.5 % (0-7); HEMATOCRIT 39.7 % (42.0-54.0); HEMOGLOBIN 13.8 g/dL (13.5-17.5); IMMATURE GRANULOCYTES 0.2 % (0-5); LYMPHOCYTES 15.6 % (15-50); MCH 31.4 pg (26.0-34.0); MCHC 34.8 g/dL (31.0-37.0); MCV 90.2 fL (80.0-100.0); MEAN PLATELET VOLUME 9.9 fL (7.4-10.4); MONOCYTES 5.4 % (2-11); NEUTROPHILS 78.2 % (40-80); PLATELET COUNT 249 10x3/uL (130-400); RDW 13.5 % (11.5-14.5); WBC 9.9 10x3/uL (4.8-10.8)
--- NOTE | 2019-07-12 15:10 | NUR ---
UNABLE TO COMPLETE SUICIDE ASSESSMENT BC PT REQUIRED SOME [place] DUE TO BEHAVIORS. WILL ATTEMPT LATER TO COMPLETE ASSESSMENT.
[2019-07-12 15:30] LABS: ANION GAP 14.5 mmol/L (8-16); CALCIUM 8.8 mg/dL (8.5-10.1); CARBON DIOXIDE 24.4 mmol/L (21.0-32.0); CREATININE - SERUM 1.2 mg/dL (0.6-1.3); POTASSIUM - SERUM 3.9 mmol/L (3.5-5.1)
[2019-07-12 15:38] LABS: ALBUMIN 4.1 g/dL (3.4-5.0); BILIRUBIN - TOTAL 0.26 mg/dL (0.2-1.3); MAGNESIUM - SERUM 2.1 mg/dL (1.8-2.4); PROTEIN - SERUM 8.2 g/dL (6.4-8.2)
[2019-07-12 16:27] LABS: APPEARANCE CLEAR (CLEAR); BILIRUBIN NEGATIVE (NEGATIVE); COLOR YELLOW (YELLOW); GLUCOSE NEGATIVE (NEGATIVE); KETONE NEGATIVE (NEGATIVE); NITRITE NEGATIVE (NEGATIVE); PROTEIN NEGATIVE (NEGATIVE); UROBILINOGEN NORMAL (NORMAL)
[2019-07-12 16:29] LABS: UDS - AMPHET NEGATIVE QUAL (NEGATIVE); UDS - BARB NEGATIVE QUAL (NEGATIVE); UDS - BENZO NEGATIVE QUAL (NEGATIVE); UDS - COCAINE NEGATIVE QUAL (NEGATIVE); UDS - OPIATE NEGATIVE QUAL (NEGATIVE); UDS - PCP NEGATIVE QUAL (NEGATIVE); UDS - THC NEGATIVE QUAL (NEGATIVE)
--- NOTE | 2019-07-12 22:04 | NUR ---
DR. TSANG NOTIFIED ABND SITTER ORDERED. SITTER AT BEDSIDE. NOTIFIED CHARGE NURSE AND ATTENDING IN REGARDS TO ASSESSMENT FINDINGS. RESOURCES GIVEN TO PT AND SAFETY PLAN INITIATED.
[2019-07-13 01:00] VITALS: BP 132/78
== END 2019-07-13 01:01 ==
LOC: D.ER 14:11
PROVIDERS: Family Medicine
DX: R45.851 Suicidal ideations (principal); F23 Brief psychotic disorder; J45.909 Unspecified asthma, uncomplicated; Z72.0 Tobacco use; R44.3 Hallucinations, unspecified

== ENCOUNTER 2019-07-19 07:52 | Emergency (ER) | payer OTHER ==
[~2019-07-19] VITALS: Ht 177.8 cm; Wt 72.7 kg
[2019-07-19 07:58] VITALS: BP 126/80; Ht 177.8 cm; Wt 72.7 kg
--- NOTE | 2019-07-19 09:32 | NUR ---
DR. TSANG NOTIFIED AND REVIEWED PATIENT'S BEHAVIOR AND ASSESSMENT RESULTS. PATENT IS AT LOW RISK. PATIENT GIVEN RESOURCES, PATIENT VERBALIZES UNDERSTANDING. NO FURTHER ORDERS.
[2019-07-19 09:41] LABS: BASOPHILS 0.2 % (0-2); EOSINOPHILS 2.8 % (0-7); HEMATOCRIT 34.8 % (42.0-54.0); HEMOGLOBIN 11.8 g/dL (13.5-17.5); IMMATURE GRANULOCYTES 0.5 % (0-5); LYMPHOCYTES 20.2 % (15-50); MCH 31.4 pg (26.0-34.0); MCHC 33.9 g/dL (31.0-37.0); MCV 92.6 fL (80.0-100.0); MEAN PLATELET VOLUME 9.1 fL (7.4-10.4); MONOCYTES 10.4 % (2-11); NEUTROPHILS 65.9 % (40-80); PLATELET COUNT 242 10x3/uL (130-400); RBC 3.76 10x6/uL (4.20-6.10); RDW 14.2 % (11.5-14.5); WBC 8.2 10x3/uL (4.8-10.8)
[2019-07-19 09:57] LABS: CALC OSMOLALITY 289 mosm/kg (275-300); CALCIUM 8.7 mg/dL (8.5-10.1); CARBON DIOXIDE 29.6 mmol/L (21.0-32.0); CHLORIDE - SERUM 106 mmol/L (98-107); CREATININE - SERUM 0.8 mg/dL (0.6-1.3); GLUCOSE 90 mg/dL (74-106); POTASSIUM - SERUM 3.9 mmol/L (3.5-5.1); SODIUM 145 mmol/L (136-145); UREA NITROGEN 15 mg/dL (7-18); eGFR NON AFRICAN AMERICAN > 90 mL/min (90-120)
[2019-07-19 10:02] LABS: ALBUMIN 3.4 g/dL (3.4-5.0); ALKALINE PHOSPHATASE 86 U/L (46-116); ALT (SGPT) 81 U/L (10-68); BILIRUBIN - TOTAL 0.53 mg/dL (0.2-1.3); MAGNESIUM - SERUM 2.2 mg/dL (1.8-2.4); PROTEIN - SERUM 7.4 g/dL (6.4-8.2)
== END 2019-07-19 14:37 | disposition home or self-care (01) ==
LOC: D.ER 07:52
PROVIDERS: Family Medicine
DX: Z59.0 Homelessness (principal); F32.9 Major depressive disorder, single episode, unspecified

== ENCOUNTER 2019-07-20 23:33 | Emergency (ER) | payer OTHER ==
[~2019-07-20] VITALS: Ht 177.8 cm; Wt 77.3 kg
[2019-07-20 23:53] VITALS: Ht 177.8 cm; Wt 77.3 kg
[2019-07-21 00:16] LABS: CALC OSMOLALITY 287 mosm/kg (275-300); CALCIUM 8.5 mg/dL (8.5-10.1); CARBON DIOXIDE 32.4 mmol/L (21.0-32.0); CHLORIDE - SERUM 104 mmol/L (98-107); GLUCOSE 83 mg/dL (74-106); POTASSIUM - SERUM 3.5 mmol/L (3.5-5.1); SODIUM 145 mmol/L (136-145); UREA NITROGEN 12 mg/dL (7-18); eGFR NON AFRICAN AMERICAN 87 mL/min (90-120)
[2019-07-21 00:18] LABS: HEMATOCRIT 38.8 % (42.0-54.0); HEMOGLOBIN 12.9 g/dL (13.5-17.5); MCH 30.6 pg (26.0-34.0); MCHC 33.2 g/dL (31.0-37.0); MCV 91.9 fL (80.0-100.0); MEAN PLATELET VOLUME 8.7 fL (7.4-10.4); NEUTROPHILS 64.1 % (40-80); RBC 4.22 10x6/uL (4.20-6.10); RDW 14.4 % (11.5-14.5); WBC 7.5 10x3/uL (4.8-10.8)
[2019-07-21 00:19] LABS: PLATELET COUNT 322 10x3/uL (130-400)
[2019-07-21 00:20] LABS: ALBUMIN 3.3 g/dL (3.4-5.0); ALKALINE PHOSPHATASE 103 U/L (46-116); ALT (SGPT) 90 U/L (10-68); BILIRUBIN - TOTAL 0.13 mg/dL (0.2-1.3); PROTEIN - SERUM 7.6 g/dL (6.4-8.2)
--- NOTE | 2019-07-21 00:47 | NUR ---
DR TSANG NOTIFIED AND REVIEWED PT's BEHAVIOR AND ASSESSMENT RESULTS. PT IS A LOW RISK PER DR TSANG. DR TSANG STATED TO GIVE RESOURCES TO PT AT TIME OF DISCHARGE. NO FURTHER ORDERS AT THIS TIME. RESOURCES REVIEWED WITH PT AND HE VERBALIZED UNDERSTANDING.
[2019-07-21 02:22] LABS: UDS - AMPHET POSITIVE QUAL (NEGATIVE); UDS - BARB NEGATIVE QUAL (NEGATIVE); UDS - BENZO NEGATIVE QUAL (NEGATIVE); UDS - COCAINE NEGATIVE QUAL (NEGATIVE); UDS - OPIATE NEGATIVE QUAL (NEGATIVE); UDS - PCP NEGATIVE QUAL (NEGATIVE); UDS - THC POSITIVE QUAL (NEGATIVE)
[2019-07-21 02:40] LABS: APPEARANCE CLEAR (CLEAR); BILIRUBIN NEGATIVE (NEGATIVE); COLOR YELLOW (YELLOW); GLUCOSE NEGATIVE (NEGATIVE); KETONE SMALL mg/dL (NEGATIVE); NITRITE NEGATIVE (NEGATIVE); PROTEIN TRACE mg/dL (NEGATIVE); UROBILINOGEN NORMAL (NORMAL)
[2019-07-21 02:42] LABS: BACTERIA FEW /hpf (NEGATIVE); EPITHELIAL CELLS 0-5 /hpf (0-5); HYALINE CAST 0-5 /lpf (NONE SEEN); MUCUS <1+ /lpf (NONE SEEN); RED CELLS - URINE 0-5 /hpf (0-5)
[2019-07-21 06:37] VITALS: BP 128/89
== END 2019-07-21 08:07 ==
LOC: D.ER 23:33
PROVIDERS: Family Medicine
DX: R45.851 Suicidal ideations (principal); F31.9 Bipolar disorder, unspecified; F20.9 Schizophrenia, unspecified; R44.1 Visual hallucinations

== ENCOUNTER 2019-09-20 02:55 | Emergency (ER) | payer OTHER ==
[~2019-09-20] VITALS: Ht 177.8 cm; Wt 86.4 kg
[2019-09-20 03:03] VITALS: Ht 177.8 cm; Wt 86.4 kg
[2019-09-20 03:25] LABS: BASOPHILS 0.2 % (0-2); EOSINOPHILS 1.3 % (0-7); HEMATOCRIT 39.2 % (42.0-54.0); HEMOGLOBIN 13.3 g/dL (13.5-17.5); IMMATURE GRANULOCYTES 0.3 % (0-5); LYMPHOCYTES 34.6 % (15-50); MCH 31.5 pg (26.0-34.0); MCHC 33.9 g/dL (31.0-37.0); MCV 92.9 fL (80.0-100.0); MEAN PLATELET VOLUME 9.1 fL (7.4-10.4); MONOCYTES 8.4 % (2-11); NEUTROPHILS 55.2 % (40-80); RBC 4.22 10x6/uL (4.20-6.10); RDW 13.4 % (11.5-14.5); WBC 6.2 10x3/uL (4.8-10.8)
[2019-09-20 03:27] LABS: PLATELET COUNT 240 10x3/uL (130-400)
[2019-09-20 03:31] LABS: CALC OSMOLALITY 269 mosm/kg (275-300); CALCIUM 8.2 mg/dL (8.5-10.1); CARBON DIOXIDE 28.6 mmol/L (21.0-32.0); CHLORIDE - SERUM 100 mmol/L (98-107); CREATININE - SERUM 0.7 mg/dL (0.6-1.3); GLUCOSE 92 mg/dL (74-106); POTASSIUM - SERUM 3.7 mmol/L (3.5-5.1); SODIUM 136 mmol/L (136-145); UREA NITROGEN 8 mg/dL (7-18); eGFR NON AFRICAN AMERICAN > 90 mL/min (90-120)
[2019-09-20 03:33] LABS: APTT 25.9 SECONDS (22.8-39.4); INR 0.98 (0.85-1.17); PROTIME 12.9 SECONDS (11.6-15.0)
[2019-09-20 03:45] LABS: ALBUMIN 3.6 g/dL (3.4-5.0); ALKALINE PHOSPHATASE 138 U/L (30-120); ALT (SGPT) 80 U/L (10-68); CKMB 0.7 U/L (0.0-3.6); CREATINE KINASE 127 UL (21-232); MAGNESIUM - SERUM 1.8 mg/dL (1.8-2.4); PROTEIN - SERUM 7.6 g/dL (6.4-8.2)
[2019-09-20 03:47] LABS: TROPONIN-I < 0.017 ng/mL (0.000-0.060)
[2019-09-20 03:49] LABS: UDS - AMPHET POSITIVE QUAL (NEGATIVE); UDS - BARB NEGATIVE QUAL (NEGATIVE); UDS - BENZO NEGATIVE QUAL (NEGATIVE); UDS - COCAINE NEGATIVE QUAL (NEGATIVE); UDS - OPIATE NEGATIVE QUAL (NEGATIVE); UDS - PCP NEGATIVE QUAL (NEGATIVE); UDS - THC POSITIVE QUAL (NEGATIVE)
[2019-09-20 03:50] LABS: BILIRUBIN NEGATIVE (NEGATIVE); GLUCOSE NEGATIVE (NEGATIVE); KETONE NEGATIVE (NEGATIVE); NITRITE NEGATIVE (NEGATIVE); UROBILINOGEN NORMAL (NORMAL)
[2019-09-20 03:51] LABS: BACTERIA NONE SEEN /hpf (NEGATIVE); EPITHELIAL CELLS NSEEN /hpf (0-5); RED CELLS - URINE NONE SEEN /hpf (0-5); WHITE CELLS - URINE 0-5 /hpf (NEGATIVE)
[2019-09-20] MEDS ORDERED: SEROQUEL100 MG PO (03:59)
[2019-09-20] MEDS ORDERED: EFFEXOR50 MG PO (03:59)
[2019-09-20] MEDS ORDERED: LITHIUM CARBON300 MG PO (04:02)
[2019-09-20 04:55] VITALS: BP 147/91
== END 2019-09-20 04:55 | disposition home or self-care (01) ==
LOC: D.ER 02:55
PROVIDERS: Emergency Medicine
DX: F15.10 Other stimulant abuse, uncomplicated (principal); F31.89 Other bipolar disorder; F10.21 Alcohol dependence, in remission; Z91.14 Patient's other noncompliance with medication regimen; S00.03XA Contusion of scalp, initial encounter; X58.XXXA Exposure to other specified factors, initial encounter; F17.210 Nicotine dependence, cigarettes, uncomplicated

== ENCOUNTER 2019-11-14 09:18 | Emergency (ER) | payer OTHER ==
[~2019-11-14] VITALS: Ht 177.8 cm; Wt 79.5 kg
[2019-11-14 09:26] VITALS: Ht 177.8 cm; Wt 79.5 kg
[2019-11-14 10:00] LABS: CALC OSMOLALITY 273 mosm/kg (275-300); CALCIUM 9.1 mg/dL (8.5-10.1); CHLORIDE - SERUM 101 mmol/L (98-107); CREATININE - SERUM 0.9 mg/dL (0.6-1.3); GLUCOSE 94 mg/dL (74-106); POTASSIUM - SERUM 3.9 mmol/L (3.5-5.1); SODIUM 137 mmol/L (136-145); UREA NITROGEN 12 mg/dL (7-18); eGFR NON AFRICAN AMERICAN > 90 mL/min (90-120)
[2019-11-14 10:01] LABS: BILIRUBIN NEGATIVE (NEGATIVE); GLUCOSE NEGATIVE (NEGATIVE); KETONE MODERATE mg/dL (NEGATIVE); NITRITE NEGATIVE (NEGATIVE); SPECIFIC GRAVITY 1.005 (1.005-1.020); UROBILINOGEN NORMAL (NORMAL)
[2019-11-14 10:02] LABS: BACTERIA FEW /hpf (NEGATIVE); EPITHELIAL CELLS RARE /hpf (0-5); RED CELLS - URINE NONE SEEN /hpf (0-5); WHITE CELLS - URINE 0-5 /hpf (NEGATIVE)
[2019-11-14 10:05] LABS: ALBUMIN 3.7 g/dL (3.4-5.0); ALKALINE PHOSPHATASE 120 U/L (30-120); ALT (SGPT) 110 U/L (10-68); BILIRUBIN - TOTAL 0.73 mg/dL (0.2-1.3); MAGNESIUM - SERUM 1.7 mg/dL (1.8-2.4); PROTEIN - SERUM 8.2 g/dL (6.4-8.2); UDS - AMPHET NEGATIVE QUAL (NEGATIVE); UDS - BARB NEGATIVE QUAL (NEGATIVE); UDS - BENZO POSITIVE QUAL (NEGATIVE); UDS - COCAINE NEGATIVE QUAL (NEGATIVE); UDS - OPIATE NEGATIVE QUAL (NEGATIVE); UDS - PCP NEGATIVE QUAL (NEGATIVE); UDS - THC POSITIVE QUAL (NEGATIVE)
[2019-11-14 10:15] LABS: BASOPHILS 0.1 % (0-2); EOSINOPHILS 1.7 % (0-7); HEMATOCRIT 42.9 % (42.0-54.0); IMMATURE GRANULOCYTES 0.3 % (0-5); LYMPHOCYTES 20.1 % (15-50); MCH 30.4 pg (26.0-34.0); MCHC 32.6 g/dL (31.0-37.0); MCV 93.1 fL (80.0-100.0); MEAN PLATELET VOLUME 9.2 fL (7.4-10.4); MONOCYTES 7.3 % (2-11); NEUTROPHILS 70.5 % (40-80); RBC 4.61 10x6/uL (4.20-6.10); RDW 13.8 % (11.5-14.5)
[2019-11-14 10:22] LABS: PLATELET COUNT 300 10x3/uL (130-400)
--- NOTE | 2019-11-14 10:25 | NUR ---
DR TSANG NOTIFIED AND REVIEWED PT'S BEHAVIOR AND ASSESSMENT RESULTS. PT IS A HIGH RISK. SITTER ORDERED AND AT BEDSIDE. SAFETY PLAN INITIATED. RESOURCES GIVEN AND HE VERBALIZES UNDERSTANDING.
[2019-11-14 12:46] VITALS: BP 138/62
== END 2019-11-14 13:09 ==
LOC: D.ER 09:18
PROVIDERS: Family Medicine
DX: R45.851 Suicidal ideations (principal); F19.10 Other psychoactive substance abuse, uncomplicated